=== PATIENT | male | born 2000 | race Caucasian/White ===

== ENCOUNTER 2025-05-26 18:33 | Inpatient (IN) | payer OTHER ==
[~2025-05-26] VITALS: Ht 175.3 cm; Wt 104.9 kg
[2025-05-26 20:42] LABS: AMPHETAMINES LEVEL URINE NEGATIVE (NEGATIVE); BARBITURATES URINE NEGATIVE (NEGATIVE)
[2025-05-26 20:43] LABS: BENZODIAZEPINES URINE NEGATIVE (NEGATIVE); CANNABINOIDS URINE NEGATIVE (NEGATIVE); COCAINE METABOLITE URINE NEGATIVE (NEGATIVE); METHADONE URINE NEGATIVE (NEGATIVE); OPIATES URINE NEGATIVE (NEGATIVE); PHENCYCLIDINE URINE NEGATIVE (NEGATIVE)
[2025-05-26 20:58] LABS: BASO # 0.1 10^3/uL (0.0-0.2); BASO % 0.8 % (0.0-1.0); EOS # 0.3 10^3/uL (0.0-0.5); EOS % 2.6 % (0.0-3.0); LYMPH # 2.6 10^3/uL (1.5-5.0); LYMPH % 26.1 % (24.0-44.0); MONO # 0.8 10^3/uL (0.0-0.8); MONO % 7.7 % (2.0-8.0); NEUTROPHILS # 6.1 10^3/uL (1.5-8.5); NEUTROPHILS % 62.4 % (36.0-66.0); PLATELET COUNT, AUTOMATED 247 10^3/uL (150-450)
[2025-05-26] MEDS ORDERED: HOME MED LIST COMPLETE! XX SCH (21:10)
[2025-05-26 21:23] LABS: ETHYL ALCOHOL (ETHANOL) 0.016 % (0.000-0.010)
[2025-05-26 21:25] LABS: ALT/SGPT 21 U/L (7.0-40); AST/SGOT 29 U/L (<34); CALCIUM LEVEL 8.7 MG/DL (8.5-10.1); CARBON DIOXIDE LEVEL 24 MMOL/L (20-31); CHLORIDE LEVEL 107 MMOL/L (98-107); CREATININE FOR GFR 1.09 MG/DL (0.70-1.30); GLOMERULAR FILTRATION RATE > 90.0 (>60); POTASSIUM SERUM 4.3 MMOL/L (3.5-5.1); SALICYLATE LEVEL < 3.0 MG/DL (<30); SODIUM LEVEL 139 MMOL/L (136-145)
[2025-05-27] MEDS ORDERED: ACETAMINOPHEN 325 MG TAB PO PRN (01:45)
[2025-05-27] MEDS ORDERED: MAALOX 30 ML SUSP *UDC PO PRN (01:45)
[2025-05-27] MEDS ORDERED: IBUPROFEN 400 MG TAB PO PRN (01:45)
[2025-05-27] MEDS ORDERED: MOM 30 ML SUSPENSION UDC PO PRN (01:45)
[2025-05-27 04:15] VITALS: BP 132/74; TEMP 96.6; O2SAT 99
[2025-05-27] MEDS: traZODone 50 MG TAB PO PRN (04:45)
[2025-05-27] MEDS: SERTRALINE HCL 50 MG TAB PO SCH (11:28)
[2025-05-27] MEDS: NICOTINE 21 MG/24 HR 1 EA TRANSDERMAL TD SCH (11:29)
[2025-05-27 15:08] VITALS: BP 129/72; TEMP 97.2; O2SAT 98
[2025-05-27] MEDS: NEOSPORIN TOP OINT 15 GM TOP ONE (16:27)
[2025-05-27] MEDS: MIRTAZAPINE 7.5 MG PER 1/2 TABLET PO SCH (20:27)
[2025-05-27] MEDS: NEOSPORIN TOP OINT 15 GM TOP SCH (20:29)
[2025-05-28 05:59] VITALS: BP 125/87; TEMP 97; O2SAT 99
[2025-05-28 14:46] VITALS: BP 144/86; TEMP 98.4; O2SAT 99
[2025-05-28 15:04] VITALS: BP 141/67; TEMP 99; O2SAT 97
[2025-05-28] MEDS: traZODone 50 MG TAB PO SCH (20:18)
[2025-05-29 06:46] VITALS: BP 128/60; TEMP 97; O2SAT 96
[2025-05-29 15:37] VITALS: BP 128/65; TEMP 97.7; O2SAT 99
[2025-05-30 06:31] VITALS: BP 106/62; TEMP 97.4; O2SAT 96
[2025-05-30] MEDS: SERTRALINE HCL 25 MG TABLET PO ONE (15:22)
[2025-05-30 16:33] VITALS: BP 140/80; TEMP 97.7; O2SAT 100
[2025-05-31 06:27] VITALS: BP 131/76; TEMP 97.9; O2SAT 99
[2025-05-31] MEDS: SERTRALINE HCL 50 MG TAB PO SCH (09:06)
[2025-05-31 14:52] VITALS: BP 134/74; TEMP 98.1; O2SAT 97
[2025-05-31 20:48] VITALS: BP 134/74; TEMP 98.1; O2SAT 97
[2025-06-01 06:23] VITALS: BP 112/57; TEMP 97.9; O2SAT 97
[2025-06-01 14:46] VITALS: BP 147/62; TEMP 98.3; O2SAT 98
[2025-06-02 06:17] VITALS: BP 118/62; TEMP 97.4; O2SAT 100
[2025-06-02] MEDS: SERTRALINE 100 MG TAB PO SCH (09:01)
[2025-06-02 15:30] VITALS: BP 137/64; TEMP 98.9; O2SAT 98
[2025-06-03] MEDS ORDERED: HYDR-3363 PO (03:23)
[2025-06-03] MEDS ORDERED: ZOLO100T PO (03:23)
[2025-06-03] MEDS ORDERED: TRAZ-252 PO (03:23)
[2025-06-03 06:27] VITALS: BP 128/58; TEMP 96.9; O2SAT 97
== END 2025-06-03 10:07 | disposition home or self-care (01) | DRG 885 ==
LOC: M ED 18:33 → M ED INP 05-27 01:45 → M PSY 05-27 03:50
PROVIDERS: ADMIT Psychiatry & Neurology Neurology; ATTEND Psychiatry & Neurology Neurology
DX: F33.1 Major depressive disorder, recurrent, moderate (principal); F41.1 Generalized anxiety disorder; F10.20 Alcohol dependence, uncomplicated; Z91.51 Personal history of suicidal behavior; Z91.52 Personal history of nonsuicidal self-harm; G47.00 Insomnia, unspecified; Z88.0 Allergy status to penicillin; Z56.6 Other physical and mental strain related to work; F17.200 Nicotine dependence, unspecified, uncomplicated; Z71.6 Tobacco abuse counseling; Z71.41 Alcohol abuse counseling and surveillance of alcoholic; S01.93XA Puncture wound without foreign body of unspecified part of head, initial encounter; X78.8XXA Intentional self-harm by other sharp object, initial encounter; Y92.9 Unspecified place or not applicable